=== PATIENT | male | born 1980 | race Asian ===

== ENCOUNTER 2018-09-15 09:57 | Emergency (ER) | payer OTHER ==
[~2018-09-15] VITALS: Ht 175.3 cm; Wt 63.5 kg
[2018-09-15 10:15] VITALS: BP 127/78
--- NOTE | 2018-09-15 10:22 | NUR ---
ED Nurse Note:visual acuity is done R 20/25, L 20/20
[2018-09-15] MEDS ORDERED: Fluorescein Strips RIGHT EYE ONE (10:30)
[2018-09-15] MEDS ORDERED: Tetracaine 0.5% Opth 4ml Soln ONE (10:32)
--- NOTE | 2018-09-15 10:44 | Emergency Room Report ---
History of Present Illness General Chief Complaint: Eye Problems Source: Patient Present Illness HPI 37-year-old male with no medical problems presents with sensation of foreign body in right eye. 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 He reports he rinses at work, but still felt like something was there so he came in got checked here, but reports he was rinsing his eye here and feels like it's improved. He is not sure exactly what kind of food other than bread, may have gotten in his eye. He denies contact lens use, and reports she has no medical problems. He denies headache, or visual disturbance. Allergies: Coded Allergies: No Known Allergies (Unverified , 09/15/18) Patient History Past Medical History: see triage record Reviewed Nursing Documentation: PMH: Agreed; PSxH: Agreed Nursing Documentation-PMH Past Medical History: No Stated History Review of Systems Constitutional: Denies: fever Eye: Denies: acuity changes Respiratory: Denies: cough, shortness of breath Cardiovascular: Denies: chest pain Gastrointestinal: Denies: nausea, vomiting Skin: Denies: rash Neurological: Denies: headache All Other Systems: negative except mentioned in HPI Physical Exam Vital Signs Date Time Temp Pulse Resp B/P (MAP) Pulse Ox O2 Delivery O2 Flow Rate FiO2 09/15/18 09:59 98.1 96 19 127/78 99 Room Air General Appearance: well appearing, no apparent distress Head: normocephalic, atraumatic Eyes: bilateral eye normal inspection, bilateral eye PERRL, bilateral eye fluoroscene uptake, bilateral eye EOMI, bilateral eye visual acuity - 20/25 in R , 20/20 in L ENT: hearing grossly normal, normal voice Neck: full range of motion, supple Respiratory: no respiratory distress, speaking full sentences Musculoskeletal: no calf tenderness Neurologic: alert, normal gait Psychiatric: mood/affect normal Skin: no rash Medical Decision Making Diagnostic Impression: Primary Impression: Eye problem ER Course Patient with no conjunctival injection, normal lids bilaterally, no uptake on fluorescein, and reports his symptoms improved when he irrigated his own eyes here, he requested a work note for today wondering whether or not he should be able to work. Last Vital Signs Date Time Temp Pulse Resp B/P (MAP) Pulse Ox O2 Delivery O2 Flow Rate FiO2 09/15/18 10:15 98.1 67 19 127/78 99 Room Air Disposition: HOME, SELF-CARE Condition: Improved Departure Forms: Return to Work Return to Work in (Days): 1 Return to Work Date: Sep 16, 2018 Patient Instructions: Eye Foreign Body, [id number] LAMONT GONZALES M.D Sep 15, 2018 10:44
[2018-09-15] MEDS ORDERED: Tetracaine 0.5% Opth 4ml Soln RIGHT EYE ONE (10:45)
[2018-09-15 11:24] VITALS: BP 127/78
--- NOTE | 2018-09-15 11:25 | NUR ---
ER DISCHARGE NOTE: Patient is cleared to be discharged per ERMD, pt is aox4, on room air, with stable vital signs. pt was given dc and work miscomp instructions, pt was able to verbalize understanding, pt is able to ambulate with steady gait. pt took all belongings.
== END 2018-09-15 11:26 | disposition home or self-care (01) ==
LOC: EMR 10:29
DX: H57.9 Unspecified disorder of eye and adnexa (principal)
CPT/HCPCS: 99282